=== PATIENT | male | born 1980 | race Caucasian/White ===

== ENCOUNTER 2022-06-27 20:00 | Emergency (ER) | payer OTHER ==
[2022-06-27 20:42] VITALS: BP 144/90; PULSE 99; RESP 17; TEMP 98.3; BMI 29.7
[2022-06-27] MEDS ORDERED: DIPHTH,PERTUSS(ACELL),TET 0.5 ML DISP.SYRIN IM ONE ×2 (22:18→22:20)
[2022-06-27] MEDS ORDERED: AMOX TR/POT CLAV 875MG/125MG TABLETS (FP) PO ONE (23:57)
[2022-06-27] MEDS ORDERED: AMOX TR/POT CLAV 875MG/125MG TABLETS (FP) ONE (23:58)
== END 2022-06-28 00:26 | disposition home or self-care (01) ==
LOC: JERFT 20:00 → JER 20:00 → JERFT 06-28 00:26
PROC: 0HQFXZZ Repair Right Hand Skin, External Approach (ICD-10-PCS; principal; 2022-06-27)
PROC: 3E0234Z Introduction of Serum, Toxoid and Vaccine into Muscle, Percutaneous Approach (ICD-10-PCS; 2022-06-27)
DX: S61.011A Laceration without foreign body of right thumb without damage to nail, initial encounter (principal)
CPT/HCPCS: 12002-25; 73130-TC-RT-FY; 90471; 90715; 99284-25

== ENCOUNTER 2024-03-24 12:14 | Observation (INO) | payer OTHER ==
[2024-03-24 12:21] VITALS: BMI 28.1
[2024-03-24] MEDS ORDERED: EPINEPHrine/PF 1 MG/1 ML (1:1,000) AMPULE ONE (12:22)
[2024-03-24] MEDS ORDERED: FAMOTIDINE 20 MG/50 ML IVPB 20 MG/50 ML MG IVPB ONE (12:27)
[2024-03-24] MEDS ORDERED: methylPREDNISolone NA SUCC 125 MG/2 ML VIAL ONE (12:27)
[2024-03-24] MEDS: methylPREDNISolone NA SUCC 125 MG/2 ML VIAL IVPB ONE (12:27)
[2024-03-24] MEDS ORDERED: ALBUTEROL SO4 2.5/IPRATROPIUM 0.5 INH SOL 3 ML VIAL.NEB. NEB ONE (12:28)
[2024-03-24] MEDS: EPINEPHrine 1:1,000 1,000 MCG/ML ML IM ONE (12:31)
[2024-03-24] MEDS: FAMOTIDINE 20 MG/50 ML IVPB 20 MG/50 ML MG IVPB ONE (12:38)
[2024-03-24 12:48] LABS: VENOUS O2 SATURATION 62.8 % (70-80); VENOUS PCO2 47.5 mmHg (38-52); VENOUS PH 7.343 (7.310-7.410)
[2024-03-24 12:57] LABS: BASO % 0.8 % (0-2.0); HEMATOCRIT 45.7 % (35.4-49); HEMOGLOBIN 15.6 GM/dL (11.7-16.9); LYMPH % 33.6 % (8-40); MCH 28.1 pg (25.7-33.7); MCHC 34.2 g/dl (32.0-35.9); MEAN CELL VOLUME 82.1 fl (80-96); MONO % 7.9 % (3.8-10.2); NEUT % 53.7 % (42.8-82.8); PLATELET COUNT 297 10^3/uL (134-434); RBC 5.57 M/mm3 (4.00-5.60); RDW 14.4 % (11.9-15.9); WHITE BLOOD COUNT 7.5 K/mm3 (4.0-10.0)
[2024-03-24 13:11] LABS: POTASSIUM 4.5 mmol/L (3.5-5.1)
[2024-03-24 13:12] LABS: CALCIUM 9.3 mg/dL (8.5-10.1)
[2024-03-24 13:13] LABS: ALBUMIN 3.9 g/dl (3.4-5.0); BLOOD UREA NITROGEN 11.7 mg/dL (7-18); MAGNESIUM 1.8 mg/dL (1.8-2.4)
[2024-03-24 13:17] LABS: CREATININE 0.8 mg/dL (0.55-1.3)
[2024-03-24 13:19] LABS: BILIRUBIN,TOTAL 0.3 mg/dL (0.2-1); TOT PROT 7.8 g/dl (6.4-8.2)
[2024-03-24] MEDS ORDERED: INSULIN (NOVOLOG) ASPART 100 UNITS/ML 10ML VIAL ONE ×2 (16:38→16:39)
[2024-03-24] MEDS: INSULIN ASPART SLIDING SCALE (NOVOLOG) 1 VIAL SQ SCH (16:44)
[2024-03-24 18:55] VITALS: RESP 18
[2024-03-24] MEDS: FAMOTIDINE 20 MG/50 ML IVPB 20 MG/50 ML MG IVPB SCH (21:47)
[2024-03-25] MEDS: predniSONE 20 MG TABLET (UD) PO SCH (09:30)
[2024-03-25 14:11] VITALS: BP 126/77; PULSE 80; TEMP 98.2
== END 2024-03-25 15:19 | disposition home or self-care (01) ==
LOC: JER 12:14 → JERBED 13:05 → J5S 18:50
PROVIDERS: ADMIT Internal Medicine
PROC: 3E033GC Introduction of Other Therapeutic Substance into Peripheral Vein, Percutaneous Approach (ICD-10-PCS; principal; 2024-03-24)
PROC: 3E023GC Introduction of Other Therapeutic Substance into Muscle, Percutaneous Approach (ICD-10-PCS; 2024-03-24)
PROC: 3E033GC Introduction of Other Therapeutic Substance into Peripheral Vein, Percutaneous Approach (ICD-10-PCS; 2024-03-24)
PROC: 3E013VG Introduction of Insulin into Subcutaneous Tissue, Percutaneous Approach (ICD-10-PCS; 2024-03-24)
PROC: 3E033GC Introduction of Other Therapeutic Substance into Peripheral Vein, Percutaneous Approach (ICD-10-PCS; 2024-03-24)
DX: T78.09XA Anaphylactic reaction due to other food products, initial encounter (principal); R06.2 Wheezing; I10 Essential (primary) hypertension; E78.5 Hyperlipidemia, unspecified; E11.9 Type 2 diabetes mellitus without complications
CPT/HCPCS: 0241U-QW; 36415; 71045-TC-FY; 80053; 82803; 82962; 83036; 83735; 84484; 85025; 96365; 96366; 96372; 96375; 96376; 99285-25; G0378